=== PATIENT | female | born 1955 | race Caucasian/White ===

== ENCOUNTER 2025-03-31 15:12 | Inpatient (IN) | payer MEDICARE ==
[~2025-03-31] VITALS: Ht 170.1 cm; Wt 81.2 kg
[2025-03-31] MEDS ORDERED: CLOPIDOGREL75 MG PO (19:18)
[2025-03-31] MEDS ORDERED: ECOTRIN81 M1 PO (19:20)
[2025-03-31] MEDS ORDERED: LISINOPRIL10 M1 PO (19:21)
[2025-03-31] MEDS ORDERED: OXYBUTYNIN CHLOR5 M1 PO (19:24)
[2025-03-31] MEDS ORDERED: OXYCODONE-ACET1 EAC3 PO (19:26)
[2025-03-31] MEDS ORDERED: PRAVASTATIN SOD40 MG PO (19:28)
[2025-03-31] MEDS ORDERED: TIZANIDINE2 MG PO (19:29)
[2025-03-31] MEDS ORDERED: ACETAMINOPHEN 325 MG TAB PO PRN (19:35)
[2025-03-31] MEDS ORDERED: MG-AL HYDROXIDE/SIMETICONE 30 ML UDC PO PRN (19:35)
[2025-03-31] MEDS ORDERED: Menthol/Zinc Oxide 4 GM THIN T PRN (19:40)
[2025-03-31 20:00] VITALS: BP 113/59
[2025-03-31] MEDS ORDERED: Water, Sterile 10 ML VIAL IM PRN (20:00)
[2025-03-31] MEDS ORDERED: hydrOXYzine hydrochloride 50 MG/ML VIAL IM PRN (20:00)
[2025-03-31] MEDS ORDERED: LORazepam 1 MG TAB PO PRN (20:00)
[2025-03-31] MEDS ORDERED: risperiDONE 1 MG TAB PO SCH (21:00)
[2025-03-31] MEDS ORDERED: LEVETIRACETAM 250 MG TAB PO SCH (21:00)
[2025-03-31] MEDS ORDERED: GABAPENTIN 300 MG CAP PO SCH (21:00)
[2025-03-31] MEDS ORDERED: Memantine Hydrochloride 5 MG TAB PO SCH (21:00)
[2025-04-01 07:20] LABS: MEAN CELL VOLUME 96.8 fl (81.0-99.0); MEAN CORPUSCULAR HGB 31.4 pg (27.0-31.0); MEAN PLATELET VOLUME 9.9 fl (9.6-12.3); NUCLEATED RED BLOOD CELL 0.0 % (0.0-0.0); NUCLEATED RED BLOOD CELL 0.0 10*3/uL (0.0-0.0); PLATELET COUNT AUTOMATED 186 10*3/uL (130-400); RED CELL DISTRI WIDTH 13.7 % (0-14.5)
[2025-04-01 07:26] LABS: MANUAL DIFF REFLEX YES
[2025-04-01 07:28] LABS: BUN 17 mg/dl (9-23); LDL CHOLESTEROL 63 mg/dL (9-159)
[2025-04-01 07:29] LABS: SGPT/ALT < 7 U/L (5-49)
[2025-04-01 07:32] LABS: VITAMIN D, 25-HYDROXY 27.9 ng/mL (30-100)
[2025-04-01] MEDS ORDERED: Rivastigmine Tartrate 4.6 MG/24 HR PATCH T SCH (09:00)
[2025-04-01] MEDS ORDERED: LISINOPRIL 10 MG TAB PO SCH (09:00)
[2025-04-01] MEDS ORDERED: risperiDONE 0.5 MG TAB PO SCH ×2 (09:00→21:00)
[2025-04-01] MEDS ORDERED: ASPIRIN ENTERIC COATED 81 MG TAB PO SCH (09:00)
[2025-04-01] MEDS ORDERED: Clopidogrel Hydrogen Sulfate 75 MG TAB PO SCH (09:00)
[2025-04-01 09:25] VITALS: BP 87/60
[2025-04-01] MEDS ORDERED: CYANOCOBALAMIN 1,000 MCG/ML VIAL IM SCH (14:00)
[2025-04-01] MEDS ORDERED: Acetaminophen/Hydrocodone 5 MG/325 MG TABLET PO PRN (16:55)
[2025-04-01 20:00] VITALS: BP 102/79
[2025-04-01] MEDS ORDERED: PRAVASTATIN SODIUM 40 MG TAB PO SCH (21:00)
[2025-04-01] MEDS ORDERED: ATORVASTATIN CALCIUM 10 MG TAB PO SCH (21:00)
[2025-04-02 08:00] VITALS: BP 135/74
[2025-04-02] MEDS ORDERED: Cholecalciferol 5,000 IU CAP (125 MCG) PO SCH (09:00)
[2025-04-02 20:00] VITALS: BP 107/64
[2025-04-02 21:00] LABS: BILIRUBIN Negative (Negative); BLOOD Negative (Negative); CLARITY Clear (Clear); COLOR Yellow (Yellow); KETONE Negative (Negative); LEUKO ESTERASE 1+ (Negative); NITRITE Negative (Negative); PH 5.5 (4.5-8.0); SPECIFIC GRAVITY 1.015 (1.001-1.030); UROBILINOGEN 0.2 E.U./dl (0.0-1.0)
[2025-04-02 21:08] LABS: BACTERIA 4+
[2025-04-03 08:00] VITALS: BP 142/83
[2025-04-03 20:00] VITALS: BP 99/65
[2025-04-03] MEDS ORDERED: CEFDINIR 300 MG CAP PO SCH (21:00)
[2025-04-04 08:00] VITALS: BP 142/86
[2025-04-04 20:10] VITALS: BP 112/71
[2025-04-04] MEDS ORDERED: Mirtazapine 15 MG TAB PO SCH (21:00)
[2025-04-05 08:00] VITALS: BP 124/90
[2025-04-05 20:00] VITALS: BP 119/64
[2025-04-06 09:03] VITALS: BP 153/99
[2025-04-06 20:00] VITALS: BP 110/67
[2025-04-07 06:14] LABS: BUN 21 mg/dl (9-23)
[2025-04-07 06:20] LABS: SGPT/ALT < 7 U/L (5-49)
[2025-04-07 07:46] VITALS: BP 130/63
[2025-04-07] MEDS ORDERED: LIDOCAINE 1 EA PATCH T SCH (09:47)
[2025-04-07] MEDS ORDERED: Acetaminophen/Oxycodone Hydr 7.5 MG/325 MG TABLET PO PRN (09:55)
[2025-04-07] MEDS ORDERED: DIVALPROEX (DR) 250 MG TAB PO SCH (13:00)
[2025-04-07 20:00] VITALS: BP 112/72
[2025-04-07] MEDS ORDERED: LEVETIRACETAM 500 MG TAB PO SCH (21:00)
[2025-04-08] MEDS ORDERED: RIVASTIGMINE1 EACH T (00:57)
[2025-04-08] MEDS ORDERED: MIRTAZAPINE15 M2 PO (00:57)
[2025-04-08] MEDS ORDERED: CLONAZEPAM1 MG PO (00:57)
[2025-04-08] MEDS ORDERED: DIVALPROEX SOD250 MG PO (00:57)
[2025-04-08] MEDS ORDERED: B121000 MCG/1 IM (00:57)
[2025-04-08] MEDS ORDERED: CLONAZEPAM0.5 M2 PO (00:57)
[2025-04-08] MEDS ORDERED: VITAMIN D3125 MC1 PO (00:57)
[2025-04-08 08:00] VITALS: BP 125/69
[2025-04-08] MEDS ORDERED: OXYCODONE-ACET1 EAC3 PO (09:52)
[2025-04-12] MEDS ORDERED: B121000 MCG/1 IM (09:26)
[2025-04-12] MEDS ORDERED: DIVALPROEX SOD250 MG PO (09:26)
[2025-04-12] MEDS ORDERED: MIRTAZAPINE15 M2 PO (09:26)
[2025-04-12] MEDS ORDERED: CLONAZEPAM1 MG PO (09:26)
[2025-04-12] MEDS ORDERED: RIVASTIGMINE1 EACH T (09:26)
[2025-04-12] MEDS ORDERED: VITAMIN D3125 MC1 PO (09:26)
== END 2025-04-08 11:19 | disposition home or self-care (01) | DRG 885 ==
LOC: 3N 15:12
PROVIDERS: Counselor Professional; ADMIT Psychiatry & Neurology Psychiatry; ATTEND Psychiatry & Neurology Psychiatry
PROC: GZHZZZZ Group Psychotherapy (ICD-10-PCS; principal; 2025-04-01)
PROC: GZ56ZZZ Individual Psychotherapy, Supportive (ICD-10-PCS; 2025-04-01)
PROC: 0HBRXZZ Excision of Toe Nail, External Approach (ICD-10-PCS; 2025-04-07)
PROC: 0HBRXZZ Excision of Toe Nail, External Approach (ICD-10-PCS; 2025-04-07)
PROC: 0HBRXZZ Excision of Toe Nail, External Approach (ICD-10-PCS; 2025-04-07)
PROC: 0HBRXZZ Excision of Toe Nail, External Approach (ICD-10-PCS; 2025-04-07)
PROC: 0HBRXZZ Excision of Toe Nail, External Approach (ICD-10-PCS; 2025-04-07)
PROC: 0HBRXZZ Excision of Toe Nail, External Approach (ICD-10-PCS; 2025-04-07)
PROC: 0HBRXZZ Excision of Toe Nail, External Approach (ICD-10-PCS; 2025-04-07)
PROC: 0HBRXZZ Excision of Toe Nail, External Approach (ICD-10-PCS; 2025-04-07)
PROC: 0HBRXZZ Excision of Toe Nail, External Approach (ICD-10-PCS; 2025-04-07)
PROC: 0HBRXZZ Excision of Toe Nail, External Approach (ICD-10-PCS; 2025-04-07)
DX: F31.9 Bipolar disorder, unspecified (principal); G45.9 Transient cerebral ischemic attack, unspecified; F03.94 Unspecified dementia, unspecified severity, with anxiety; F03.93 Unspecified dementia, unspecified severity, with mood disturbance; G47.00 Insomnia, unspecified; B35.1 Tinea unguium; M54.9 Dorsalgia, unspecified; F42.9 Obsessive-compulsive disorder, unspecified; I10 Essential (primary) hypertension; T50.995A Adverse effect of other drugs, medicaments and biological substances, initial encounter; I67.1 Cerebral aneurysm, nonruptured; Z96.653 Presence of artificial knee joint, bilateral; Z90.49 Acquired absence of other specified parts of digestive tract; Z83.3 Family history of diabetes mellitus; Z82.49 Family history of ischemic heart disease and other diseases of the circulatory system; Z81.8 Family history of other mental and behavioral disorders; Z79.899 Other long term (current) drug therapy; Z79.01 Long term (current) use of anticoagulants; Z79.2 Long term (current) use of antibiotics; Z79.82 Long term (current) use of aspirin; Y92.89 Other specified places as the place of occurrence of the external cause